=== PATIENT | male | born 1990 | race Caucasian/White ===

== ENCOUNTER → 2022-11-20 16:41 | Outpatient (CLI) | payer BC, SELFPAY ==
[2022-11-20 19:38] LABS: Alanine Aminotransferase 22 U/L (12-78); Albumin Level 4.7 g/dl (3.5-5.0); Albumin/Globulin Ratio 1.7 (1.1-1.8); Alkaline Phosphatase 49 U/L (38-126); Anion Gap 11.6 mEq/L (5-15); Aspartate Amino Transferase 33 U/L (17-59); Bilirubin,Total 0.5 mg/dl (0.2-1.3); Blood Urea Nitrogen 14 mg/dl (9-20); Calcium 9.1 mg/dl (8.4-10.2); Carbon Dioxide 29 mmol/L (22.0-30.0); Chloride 103 mmol/L (98-107); Estimated Glomerular Filt Rate 86 ml/min (>60); GFR (African American) 104 ML/MIN (>60); Globulin 2.7 g/dL (1.3-3.2); Glucose 80 mg/dl (74-100); Potassium 4.6 mmoL/L (3.5-5.1); Sodium 139 mmol/L (136-145); Total Protein,Serum 7.4 g/dl (6.3-8.2)
[2022-11-20 20:21] LABS: Basophils % 0.6 % (0.1-2.0); Eosinophils # 0.5 K/mm3 (0.0-0.4); Eosinophils % 7.4 % (0.1-12.0); Hematocrit 44.4 % (42.0-52.0); Hemoglobin 14.5 g/dL (14.1-18.0); Lymphocytes # 2.6 K/mm3 (0.7-4.5); Lymphocytes % 41.9 % (10-50); Mean Corpuscular HGB Conc 32.6 g/dL (31.8-35.4); Mean Corpuscular Hemoglobin 29.2 pg (27.0-31.2); Mean Corpuscular Volume 89.6 fl (80-94); Mean Platelet Volume 8.9 fl (7.4-10.4); Monocytes # 0.3 K/mm3 (0.1-1.0); Monocytes % 5.4 % (1.7-9.3); Neutrophils # 2.8 K/mm3 (1.8-7.8); Neutrophils % 44.7 % (37.0-80.0); Platelet Count 300 K/mm3 (142-424); Red Blood Count 4.96 M/mm3 (4.60-6.20); White Blood Count 6.3 K/mm3 (4.8-10.8)
[2022-11-20 20:27] LABS: Vitamin B12 769 pg/mL (239-931)
[2022-11-21 10:55] LABS: Thyroid Stimulating Hormone 7.68 uIU/mL (0.465-4.68)
[2022-11-24 11:21] LABS: Free T4 (Free Thyroxine) 1.11 ng/dl (0.78-2.19)
== END ==
LOC: LAB 16:52
PROVIDERS: PCP Nurse Practitioner Family; Visit Provider Nurse Practitioner Family
DX: R56.9 Unspecified convulsions (principal); R55 Syncope and collapse
CPT/HCPCS: 36415; 80053; 82607; 83735; 84439; 84443; 85025

== ENCOUNTER → 2022-11-24 12:25 | Outpatient (CLI) | payer BC, SELFPAY | PROVIDERS: PCP Nurse Practitioner Family; Visit Provider Nurse Practitioner Family | DX: R55 Syncope and collapse (principal); R56.9 Unspecified convulsions; E03.9 Hypothyroidism, unspecified | CPT/HCPCS: 95816 ==

== ENCOUNTER → 2022-12-18 08:24 | Outpatient (CLI) | payer BC, SELFPAY ==
--- NOTE | 2022-12-18 08:35 | MR_ITS ---
FINAL REPORT CLINICAL HISTORY: RECURRENT SYNCOPE. History of seizures. Intensity has increased x1 month. headache FINDINGS: Multiplanar MR imaging of the brain was performed without and with contrast. There is mild age-appropriate atrophy. Scattered foci of increased T2 signal are seen in the cerebral white matter that have a nonspecific appearance but likely represent mild chronic ischemic/gliotic changes. There is no evidence of intracranial hemorrhage or mass. No abnormal ventricular dilatation is identified. There is no evidence of shift of the midline structures. No abnormal extra-axial fluid collection is seen. No area of abnormal restricted diffusion is identified. The posterior fossa and brainstem have an unremarkable appearance. No abnormal contrast enhancement is seen. Normal major vessel vascular flow voids are seen. There is a retention cyst or polyp in the right maxillary sinus. There is mucosal thickening in multiple ethmoid air cells, sphenoid sinus and frontal sinuses. IMPRESSION: Mild atrophy and chronic ischemic/gliotic changes. No acute intracranial abnormality. Reviewed, Interpreted and Dictated by Andrés Anna III, MD Transcribed by Flako Beckford Authenticated and [facility]
--- NOTE | 2022-12-18 08:37 | XR_ITS ---
FINAL REPORT CLINICAL HISTORY: RULE OUT METAL FOREIGN BODY FOR MRI FINDINGS: ORBITS Look up and look down views were obtained. No fracture is identified. The sinuses are clear. No foreign body is identified. IMPRESSION: No acute process. Reviewed, Interpreted and Dictated by Andrés Anna III, MD Transcribed by Flako Beckford Authenticated and . [facility]
== END ==
LOC: RAD 08:25
PROVIDERS: PCP Nurse Practitioner Family; Visit Provider Nurse Practitioner Family
DX: R55 Syncope and collapse (principal); R56.9 Unspecified convulsions; H05.53 Retained (old) foreign body following penetrating wound of bilateral orbits
CPT/HCPCS: 70200; 70553; A9576

== ENCOUNTER → 2023-01-02 11:10 | Outpatient (CLI) | payer BC, SELFPAY ==
--- NOTE | 2023-01-02 11:11 | ECG_ITS ---
APPROVED REPORT Exam: Resting ECG HR:64 bpm ECG Measurements Heart Rate [address] 173 P 68 QRSd 102 QRS 93 QT 397 T 65 QTc 406 Conclusion SINUS RHYTHM WITH SINUS ARRHYTHMIA BORDERLINE RIGHT AXIS DEVIATION [QRS AXIS > 90] BORDERLINE ECG UNCONFIRMED REPORT Electronically signed by : Hardik Rodrigez MD 01/02/2023 19:16:22
== END ==
LOC: RT 11:11
PROVIDERS: PCP Nurse Practitioner Family; Visit Provider Specialist
DX: R55 Syncope and collapse (principal); R56.9 Unspecified convulsions
CPT/HCPCS: 93005; 93270

== ENCOUNTER → 2023-01-09 09:39 | Day surgery (SDC) | payer BC, SELFPAY ==
[2023-01-09 10:20] VITALS: BP 119/74; PULSE 52; RESP 18; TEMP 36.6; O2SAT 100
--- NOTE | 2023-01-09 12:16 | EXP.TILT ---
Findings:: Findings:: PROCEDURE: Upright tilt table test REQUESTING PHYSICIAN: Daysi Abdi MD INDICATION: Sporadic syncopal episodes since age 12 recently accompanied by loss of bladder control and possible seizure activity MEDS: Probiotic PRETEST VITAL SIGNS (SUPINE): Blood pressure 143/94 mmHg, heart rate 57 bpm, oxygen saturation 100% on room air PROCEDURE SUMMARY: Patient was prepared per protocol. He was then tilted into the upright position at 70 degrees for a total of 30 minutes with the test being terminated thereafter. He had no syncope or near syncope. Patient relates some mild discomfort in the legs at the end of the test. His lowest blood pressure was 140/98 mmHg with a heart rate of 65 and oxygen saturation at 92% at 10 minutes into the test. Peak blood pressure was 165/95 mmHg with a heart rate of 60 bpm oxygen saturation 100% on room air at the onset of the test after being tilted to 70 degrees. Maximum heart rate was 68 bpm, minimum heart rate 60 bpm during the test. No symptoms noted. Heart rhythm was sinus throughout. O2 sats remained in the high 90s throughout the test. Ending blood pressure 140/85 mmHg with heart rate 57 bpm and oxygen saturation 100% on room air. COMPLICATION: None CONCLUSION: Unremarkable upright tilt table test.
== END ==
LOC: RT 09:40
PROVIDERS: PCP Nurse Practitioner Family; Visit Provider Specialist
DX: R55 Syncope and collapse (principal)
CPT/HCPCS: 93660

== ENCOUNTER → 2023-01-16 12:43 | Outpatient (CLI) | payer BC, SELFPAY ==
--- NOTE | 2023-01-16 12:44 | CA_ITS ---
APPROVED REPORT EXAM: Comprehensive 2D, Doppler, and color-flow Echocardiogram Social Services Technician: Chandrika Elizabeth CRT Ht: 5 ft 11 in Wt: 176lbs BSA: 2.00 BP: 14/64 mmHg Indications: syncope Echo Enhancing Agent Indication: Rule out Shunt Agent(s) / Amount(s) Used: Agitated Saline 5 cc Comments: B/S appears positive. 2D Dimensions LVOT 2.00 cm (M/F) 1.5-2.5 M-Mode Dimensions RVDd 2.75 cm (0.9-2.6) LA Diam 2.96 cm (1.9-4.0) LVDd 4.69 cm (3.5-5.7) Ao Diam 3.51 cm (2.0-3.7) LVDs 3.29 cm (3.5-5.7) IVSd 0.78 cm (0.6-1.1) PWd 0.78 cm (0.6-1.1) EF (Teich) 57.00% FS 29.90% EDV (Teich) 101.90 mL ESV (Teich) 43.80 mL LV Diastology E Decel Time 173.00 (160-240 msec) E/A Ratio 1.19 MED E' 11.60 (< 7 cm/sec) MED A' 14.00 cm/s E'/MED E' Ratio 7.10 (>14) LAT E' 14.50 (<10 cm/sec) LAT A' 11.80 cm/s E/LAT E' Ratio 5.68 (>14) Aortic Valve AO Peak GR. 4.50 mmHg Mitral Valve MV A Velocity 69.00 (40-130 cm/s) E/A Ratio 1.19 MV Decel. Time 173.00 (160-240 ms) Pulmonary Valve PV Peak Velocity 107.00 (50-150 cm/s) Tricuspid Valve TR P. Velocity 250.00 cm/s RAP Estimate 10.00 mmHg RVSP 35.00 mmHg Left Ventricle Left atrium is normal size, left ventricle is normal size, estimated ejection fraction 55% with no regional wall motion abnormality, diastolic parameters are within normal range. Right Ventricle Right atrium and right ventricle are normal size and contractility. Atria Intra-atrial septum is intact, agitated saline contrast study identifies patent foramen ovale with [id number] shunt. Aortic Valve Aortic valve is grossly normal there is no aortic stenosis aortic insufficiency. Mitral Valve Mitral valve is grossly normal, there is trace mitral regurgitation. Tricuspid Valve Tricuspid grossly normal, there is trace tricuspid regurgitation, tricuspid regurgitation jet velocity is inadequate for calculation of the right ventricular systolic pressure. Pulmonic Valve Pulmonic valve is poorly visualized. Great Vessels Aortic root is normal size. Inferior vena cava is normal size normal inspiratory collapse. Pericardium No significant pericardial effusion noted. Conclusion 1. Normal left ventricular size preserved ventricular systolic function, estimated ejection fraction 55% with no regional wall motion abnormality, diastolic parameters are within normal range. 2. Patent foramen ovale with [id number] shunt. 3. No significant pericardial effusion noted. 4. Inferior vena cava normal size with normal inspiratory collapse. Electronically signed by : Vin Kinsey MD 01/16/2023 19:19:21
== END ==
LOC: RT 12:44
PROVIDERS: PCP Nurse Practitioner Family; Visit Provider Specialist
DX: R55 Syncope and collapse (principal)
CPT/HCPCS: 93306

== ENCOUNTER → 2023-06-13 12:48 | Outpatient (CLI) | payer BC, SELFPAY ==
--- NOTE | 2023-06-13 12:52 | CA_ITS ---
APPROVED REPORT EXAM: Comprehensive 2D, Doppler, and color-flow Echocardiogram Mac Developer: LALA Cook, RVS Ht: 5 ft 11 in Wt: 178lbs BSA: 2.01 BP: 123/80 mmHg Indications: S/P PFO closure, ex-smoker, Hx- sycope, migraines & seizures Echo Enhancing Agent Indication: Rule out Shunt Agent(s) / Amount(s) Used: Agitated Saline 20 cc 2D Dimensions Aortic Root 2.99 cm M: 3.1 - 3.7 LA Volume 53.50 mL Left Atrium 2.91 cm M: 3.0 - 4.0 LA Volume Index 26.62 mL/m2 (M/F) 16-34 LVOT 1.91 cm (M/F) 1.5-2.5 M-Mode Dimensions RVDd 2.83 cm (0.9-2.6) LA Diam 3.30 cm (1.9-4.0) LVDd 4.76 cm (3.5-5.7) Ao Diam 3.01 cm (2.0-3.7) LVDs 3.18 cm (3.5-5.7) IVSd 0.68 cm (0.6-1.1) PWd 0.72 cm (0.6-1.1) EF (Teich) 61.80% EPSs 0.39 cm FS 33.20% EDV (Teich) 105.40 mL TAPSE 2.78 (<1.7) ESV (Teich) 40.30 mL LV Diastology E Decel Time 293.00 (160-240 msec) E/A Ratio 2.02 MED E' 10.40 (< 7 cm/sec) MED A' 11.00 cm/s E'/MED E' Ratio 7.40 (>14) LAT E' 17.50 (<10 cm/sec) LAT A' 8.80 cm/s E/LAT E' Ratio 4.40 (>14) Aortic Valve LVOT Max 117.00 (70-110 cm/s) LVOT VTI 24.77 cm AoV Peak Jeremy. 137.00 (50-130 cm/s) AO Peak GR. 7.50 mmHg AO Mean GR. 3.70 (<5 mmHg) AO VTI 27.40 (18-25 cm) YONI (VTI) 2.59 (2.5-4.5 cm2) Mitral Valve MV A Velocity 38.00 (40-130 cm/s) E/A Ratio 2.02 MV Decel. Time 293.00 (160-240 ms) Pulmonary Valve PV Peak Velocity 89.00 (50-150 cm/s) AK End VMAX 112.00 cm/s Tricuspid Valve TR P. Velocity 195.00 cm/s RAP Estimate 10.00 mmHg RVSP 25.20 mmHg Left Ventricle The left ventricle is normal size. The left ventricular systolic function is normal. The left ventricular ejection fraction is within the normal range. There is normal left ventricular wall thickness. There is normal LV segmental wall motion. The left ventricular diastolic function is normal. The Left Ventricular Ejection Fraction is % + or -5. Right Ventricle The right ventricle is normal size. The right ventricular systolic function is normal. Atria The left atrium size is normal. The right atrium size is normal. s/p PFO closure. There is no Doppler evidence of interatrial shunt. Administration of agitated saline (bubble study) at rest and with Valsalva demonstrates no residual interatrial shunt. Aortic Valve The aortic valve opens well. There is no aortic valvular stenosis. No aortic regurgitation is present. Mitral Valve The mitral valve is normal in structure. No evidence of mitral valve stenosis. Trace mitral regurgitation. Tricuspid Valve The tricuspid valve is thin and pliable. Trace tricuspid regurgitation. RVSP is normal. Pulmonic Valve The pulmonary valve is normal in structure. Trace pulmonic regurgitation. Great Vessels The aortic root is normal in size. The ascending aorta is normal in size. IVC is normal in size and collapses >50% with inspiration. Pericardium There is no pericardial effusion. Other Information Study Quality: Fair Conclusion Normal biventricular systolic function. No significant valvular disease. s/p PFO closure. There is no Doppler evidence of interatrial shunt. Administration of agitated saline (bubble study) at rest and with Valsalva demonstrates no residual interatrial shunt. Electronically signed by : Inna Peacock, 06/13/2023 13:45:45
== END ==
LOC: RT 12:49
PROVIDERS: PCP Nurse Practitioner Family; Visit Provider Internal Medicine
DX: R55 Syncope and collapse (principal); Q21.12 Patent foramen ovale; Z87.74 Personal history of (corrected) congenital malformations of heart and circulatory system
CPT/HCPCS: 93306

== ENCOUNTER 2025-06-28 19:35 | Observation (INO) | payer BC, SELFPAY ==
[2025-06-28 19:46] VITALS: BP 153/107; PULSE 94; RESP 16; TEMP 36.9; O2SAT 98; BMI 27.8
--- NOTE | 2025-06-28 19:50 | ED_ITS ---
<Statement entered by Maya Davis DO - 06/28/25 23:28> I was consulted by the ANA, and we discussed the complexity of problems being addressed. I approve the treatment and management plan for this patient's care in the emergency department, thus performing a substantial portion of the medical decision making. Maya Davis DO Discharge Plan Disposition Patient Disposition: Admitted Clinical Impressions Clinical Impression: Acute appendicitis Qualifiers: Acute appendicitis type: with localized peritonitis Appendicitis gangrene presence: without gangrene Appendicitis perforation presence: without perforation Appendicitis abscess presence: without abscess Qualified Code(s): K 35.30 - Acute appendicitis with localized peritonitis, without perforation or gangrene Discharge ED Provider: Maya Davis General Adult HPI General Chief complaint: Abdominal Pain Stated complaint: Right side pain,nausea Time Seen by Provider: 06/28/25 19:38 Mode of Arrival: Ambulatory Source of Information: Patient and Spouse Limitations: No Limitations History of Present Illness HPI narrative: 34-year-old male presents to the emergency department with right-sided lower quadrant pain, 1 episode of nausea and vomiting today, patient states the pain started this morning, patient's last p.o. intake was around 9 AM this morning, patient has had decreased p.o. intake/reduced appetite, he admits to subjective fever and chills, has any chest pain shortness of breath, denies any constipation diarrhea, no melena no hematochezia no hematemesis, no urinary type symptomatology, patient states he took MiraLAX and ibuprofen with little no relief of his symptomatology today. Patient is a non-smoker occasionally utilizes alcohol, denies any other drug use, other past medical history is consistent with status post PVO closure, and seizure disorders for which he previously was on anticonvulsants for. Initial triage vitals notable for tachycardia otherwise unremarkable. Please note that above description of symptoms, in this electronic medical record under categorization of recalled from ER triage doctor by RN are reflective of an initial nursing assessment, however, is not reflective of my full history and physical exam that was personally taken and clarified. Consequentially, this preceding description of symptoms, which may include the patient's categorized chief complaint in the EMR, do not reflect my personal clinical impression, and the ultimate description of history of present illness and patient stated complaints should be deferred to this section of the note. Unless stated otherwise or congruent with this section of the note, additional signs, symptoms, or incongruence should be interpreted as inaccurate with my clinical impression. Onset (ago): hour(s) Related Data Home Medications ?Medication ?Instructions ?Recorded ?Confirmed B.coagulans 2 billion 1 cap PO DAILY Supplement 12/31/23 cell-digestive enzymes combo no.10 capsule (Digestive Advantage Probiotics Plus Gas) clopidogrel 75 mg tablet 75 mg PO DAILY 05/28/2302/19 loratadine 10 mg tablet (Claritin) 10 mg PO DAILY PRN 12/31/23 12/31/23 Previous Rx's ?Medication ?Instructions ?Recorded levetiracetam 500 mg tablet 500 mg PO BID seizure #60 tabs 12/31/23 (Keppra) Allergies Allergy/AdvReac Type Severity Reaction Status Date / Time No Known Allergies Allergy Verified 12/31/23 16:15 [facility] Disclaimer: The information contained in this section may have been updated after the patient was seen, as this information can be updated by other users. Medical History Hx of syncope Seizure disorder Surgical History S/P patent foramen ovale closure History of eye surgery Family History Other Cancer Coronary artery disease Diabetes Family history of diabetes mellitus type II Heart attack Stroke Social History (Updated 06/28/25 @ 21:44 by Miguel Angel Ramon APRN) Smoking Status: Former smoker alcohol intake: current alcohol intake frequency: holidays/special occasions only substance use type: denies use current occupational status: employed Travel in the last 8 weeks?: None adopted: No caregiver/support person: No foster care: No household members: spouse housing: other marital status: education level: high school caffeine: Yes do you feel safe at home: Yes victim of physical abuse: No victim of emotional abuse: No victim of sexual abuse: No would you like helpful sources: No Have you lived/traveled outside [place] in past 30 days?: No Contact w/someone who lives/traveled outside US past 30 days?: No Exposure to someone with infectious disease in past 14 days?: No Do you have a fever (greater than 100.4 F or 38 C)?: No Have you tested positive for COVID-19?: No Exposed to someone with COVID-19 in past 14 days?: No Do you have a sore throat?: No Do you have a cough?: No Do you have any weakness?: No Do you have any diarrhea?: No Are you experiencing any unusual bleeding?: No Do you have any muscle aches/pain?: No Do you have any abdominal pain?: Yes Are you experiencing loss of taste or smell?: No Other Medical History Have you received the Pneumonia Vaccine: No ROS Obtained: Yes All systems reviewed & no additional complaints except as documented Physical Exam General General appearance: alert and in no apparent distress Head Head exam: atraumatic and normocephalic Eye Eye exam: Present PERRL and EOMI ENT ENT exam: Present mucous membranes moist Neck Neck exam: Present normal inspection Chest Chest inspection: Present normal inspection and symmetric chest wall rise Respiratory Respiratory exam: Present normal lung sounds bilaterally; Absent respiratory distress Cardiovascular Cardiovascular exam: Present normal rhythm and tachycardia Abdominal Exam Abdominal exam: Present soft, tenderness, guarding, psoas sign and tenderness at McBurney's Point; Absent rebound Abdominal tenderness: Present RLQ and moderate Extremities Exam Extremities exam: Present normal inspection Back Exam Back exam: Present CVA tenderness (R); Absent CVA tenderness (L) Neurological Exam Neurological exam: Present alert and oriented X3 Psychiatric Psychiatric exam: Present normal affect Skin Skin exam: Present warm and dry Medical Decision Making Medical Records Medical records reviewed: Yes I reviewed the patient's medical records. Screening: Per USPSTF and CDC recommendations, given the prevalence of disease in our region, it is our hospital?s policy to screen for HIV and viral Hepatitis for all patients aged 18 and over and those with ongoing risk factors. John Inquiry Pt receiving controlled substance: Yes John was queried for this patient: No Reason not queried -: Emergent pt cond-no time Risks and benefits of using a controlled substance: were discussed with pt by me Vital Signs: 06/28/25 19:46 06/28/25 21:22 06/28/25 21:50 Temperature 98.4 F 98.3 F Temperature Source Oral Oral Pulse Rate 89 80 Pulse Rate [Left] 94 H Respiratory Rate 16 16 16 Blood Pressure 165/110 H 146/98 H Blood Pressure [Right Arm] 153/107 H Blood Pressure Mean [Right Arm] 122 Blood Pressure Source [Right Arm] Automatic Cuff Blood Pressure Position [Right Arm] Sitting 02 Sat by Pulse Oximetry 98 97 Oxygen Delivery Method Room Air Room Air Lab Data Lab results reviewed: Yes I reviewed the patient's lab results. Lab Results 06/28/25 19:48: WBC 14.8 H, RBC 5.01, Hgb 15.8, Hct 43.9, MCV 87.6, MCH 31.5 H, MCHC 36.0 H, RDW 13.0, Plt Count 318, MPV 10.4, Neut % (Auto) 77.3, Lymph % (Auto) 12.3, Archer % (Auto) 7.2, Eos % (Auto) 2.4, Baso % (Auto) 0.3, Neut # (Auto) 11.4 H, Lymph # (Auto) 1.8, Archer # (Auto) 1.1 H, Eos # (Auto) 0.4, Baso # (Auto) 0.0, Sodium 136, Potassium 3.8, Chloride 102, Carbon Dioxide 24, Anion Gap 13.8, BUN 12, Creatinine 0.90, Estimated Creat Clear 146, Estimated GFR 95, Est GFR ( Amer) 116, Glucose 105 H, Calcium 9.5, Total Bilirubin 0.8, AST 42, ALT 27, Alkaline Phosphatase 67, Total Protein 8.3 H, Albumin 4.8, Globulin 3.5 H, Albumin/Globulin Ratio 1.4, Lipase 63 06/28/25 19:48 06/28/25 19:48 Orders (Tests/Meds): ED MEDICATIONS Generic Name Dose Route Start Last Admin Trade Name Freq PRN Reason Stop Dose Admin Hydromorphone HCl 1 mg 06/28/25 21:35 Hydromorphone 2mg/Ml Syringe IV 07/28/25 21:34 Q4HP PRN Severe Pain (7-10) Lactated Ringer's 1,000 mls @ 125 mls/hr 06/28/25 21:45 Lactated Ringer's 1000 Ml Bag IV 07/28/25 21:44 .Q8H INDIRA Piperacillin Sod/Tazobactam 50 mls @ 100 mls/hr 06/29/25 05:00 Sod 3.375 gm/ Sodium Chloride IV 07/09/25 04:59 Q8H INDIRA Ketorolac Tromethamine 15 mg 06/28/25 21:35 Ketorolac 30mg/Ml Vial IV 07/03/25 21:34 Q6HP PRN Moderate Pain (4-6) Ondansetron HCl 4 mg 06/28/25 21:35 Ondansetron 4mg/2ml Vial IV 07/28/25 21:34 Q8HP PRN Nausea Sodium Chloride 8 ml 06/28/25 21:35 Sodium Chloride 0.9% 10ml Vial IV 07/28/25 21:34 NEEDED PRN dilute pepcid Discontinued Medications Generic Name Dose Route Start Last Admin Trade Name Freq PRN Reason Stop Dose Admin Famotidine 20 mg 06/28/25 21:35 Famotidine 20mg/2ml Vial IV 06/28/25 21:36 ONCE ONE Piperacillin Sod/Tazobactam 50 mls @ 100 mls/hr 06/28/25 21:11 06/28/25 21:28 Sod 3.375 gm/ Sodium Chloride IV 06/28/25 21:40 100 mls/hr ONCE ONE Administration Iopamidol 75 ml 06/28/25 20:06 06/28/25 20:06 Iopamidol-370 (76%);100ml Bottle IV 06/28/25 20:07 75 ml ONCE ONE Administration Morphine Sulfate 4 mg 06/28/25 19:56 06/28/25 20:14 Morphine 4mg/Ml Syringe IV 06/28/25 19:57 4 mg ONCE ONE Administration Ondansetron HCl 4 mg 06/28/25 19:56 06/28/25 20:13 Ondansetron 4mg/2ml Vial IV 06/28/25 19:57 4 mg ONCE ONE Administration Sodium Chloride 10 ml 06/28/25 20:06 06/28/25 20:06 Sodium Chloride 0.9% 10ml Syr (Rad Only) IV 06/28/25 20:07 10 ml ONCE ONE Administration ORDERS Category Date Time Status CT abdomen pelvis w con Stat Cat Scan 06/28/25 19:55 Completed Consult to General Surgery [CONS] Routine Cons 06/28/25 21:35 Ordered Consult to General Surgery [CONS] Stat Cons 06/28/25 21:12 Ordered Complete Blood Count Auto Diff Stat Lab 06/28/25 19:48 Completed Comprehensive Metabolic Panel Stat Lab 06/28/25 19:48 Completed Lactic Acid Stat Lab 06/28/25 19:56 Ordered Lipase Stat Lab 06/28/25 19:48 Completed Urinalysis and Microscopic Stat Lab 06/28/25 19:56 Ordered Medical Decision Narrative: 34-year-old male presents to the emergency department with lower quadrant abdominal pain, nausea vomiting, poor p.o. intake, differential diagnose include but not limited to appendicitis, diverticulitis, pancreatitis, colitis, ileitis, nephrolithiasis, acute UTI, acute pyelonephritis, ureterolithiasis, bowel obstruction, among others. I discussed patient case with him physician Dr. Davis Will obtain basic laboratory studies, lactic acid level, lipase level, UA, will place the patient n.p.o. in the emerged part, CT and pelvis with contrast to be obtained, will give 4 mg of morphine and 4 mg of Zofran for pain and nausea. Mild leukocytosis at 14.8, as noted on CBC CMP is notable for normal lipase I reviewed the patient's CT ab pelvis with contrast along the corresponding radiologic report, findings compatible with acute early appendicitis. I also was able to speak to the radiologist personally on the phone. See radiology report for full formal details. Discussed this patient's case with the general surgeon Dr. Joseph at approximately 9:04 PM, he is in agreement with the current treatment plan/admission plan patient be NPO after midnight, will give IV antibiotics, will give IV Zosyn, he voiced understanding with this, patient will be most likely operative case in the morning for appendectomy. I discussed need for admission and general surgery consultation/evaluation in the a.m. with patient family the bedside patient and family agree with current treatment plan/admission plan. I discussed this patient's case with the hospitalist Miguel Angel Rossi APRN at approximately 9:10 PM, he is in agreement with cardioversion plan/treatment plan. Of note, patient tells me he has no longer on his anticonvulsant therapy or antiplatelet therapy. Critical Care Critical Care Time Critical Care Time: No
--- NOTE | 2025-06-28 19:55 | CT_ITS ---
PROCEDURE INFORMATION: Exam: CT Abdomen And Pelvis With Contrast Exam date and time: 06/28/2025 8:07 PM Age: 34 years old Clinical indication: Nausea and vomiting; Abdominal pain; Additional info: Rlq pain, nausea and vomiting TECHNIQUE: Imaging protocol: Computed tomography of the abdomen and pelvis with contrast. Radiation optimization: All CT scans at this facility use at least one of these dose optimization techniques: automated exposure control; mA and/or kV adjustment per patient size (includes targeted exams where dose is matched to clinical indication); or iterative reconstruction. Contrast material: ISOVUE; Contrast volume: 75 ml; Contrast route: IV; COMPARISON: No relevant prior studies available. FINDINGS: Liver: Normal. No mass. Gallbladder and biliary ducts: Normal. No calcified stones. No ductal dilation. Pancreas: Normal. No ductal dilation. Spleen: Normal. No splenomegaly. Adrenal glands: Normal-sized adrenal glands. Small calcification left adrenal gland noted. Kidneys and ureters: Normal. No hydronephrosis. Stomach and bowel: Unremarkable. No obstruction. No mucosal thickening. Appendix: No evidence of appendicitis. Intraperitoneal space: See Soft tissues finding. Vasculature: Normal-sized aorta with satisfactory enhancement. Mild atherosclerotic plaquing involving the common iliac arteries. Lymph nodes: Unremarkable. No enlarged lymph nodes. Urinary bladder: Unremarkable as visualized. Reproductive: Unremarkable as visualized. Bones/joints: Unremarkable. No acute fracture. Soft tissues: The appendix in the right lower quadrant is enlarged measuring 9 mm and demonstrates mild wall enhancement with surrounding mesenteric inflammation and fascial thickening most consistent with early uncomplicated appendicitis. There is no free fluid seen within the pelvis. IMPRESSION: 1. Abnormal appendix right lower quadrant as discussed above which has an appearance most consistent with early uncomplicated acute appendicitis. 2. Other findings above. COMMENT: THIS REPORT CONTAINS FINDINGS THAT MAY BE CRITICAL TO PATIENT CARE. The exam findings were verbally communicated by me to Dr. Samir Gomez via telephone conference at 9:00 PM EDT on 06/28/2025. The findings were acknowledged and understood.
--- NOTE | 2025-06-28 20:00 | PC.NURSE ---
Pt notified of UA need. PT unable to urinate at this time.
[2025-06-28] MEDS: SODIUM CHLORIDE 0.9% 10ML SYR (RAD ONLY) 10 ML IV (20:06)
[2025-06-28] MEDS: IOPAMIDOL-370 (76%);100ML BOTTLE 75 ML IV (20:06)
[2025-06-28 20:07] LABS: Alanine Aminotransferase 27 U/L (12-78); Albumin Level 4.8 g/dl (3.5-5.0); Albumin/Globulin Ratio 1.4 (1.1-1.8); Alkaline Phosphatase 67 U/L (38-126); Anion Gap 13.8 mEq/L (5-15); Aspartate Amino Transferase 42 U/L (17-59); Bilirubin,Total 0.8 mg/dl (0.2-1.3); Blood Urea Nitrogen 12 mg/dl (9-20); Calcium 9.5 mg/dl (8.4-10.2); Carbon Dioxide 24 mmol/L (22.0-30.0); Chloride 102 mmol/L (98-107); Creatinine Clearance Estimated 146 mL/min (50-200); Creatinine,Serum 0.90 mg/dl (0.66-1.25); Estimated Glomerular Filt Rate 95 ml/min (>60); GFR (African American) 116 ML/MIN (>60); Globulin 3.5 g/dL (1.3-3.2); Glucose 105 mg/dl (74-100); Lipase 63 U/L (23-300); Potassium 3.8 mmoL/L (3.5-5.1); Sodium 136 mmol/L (136-145); Total Protein,Serum 8.3 g/dl (6.3-8.2)
[2025-06-28 20:11] LABS: Hematocrit 43.9 % (42.0-52.0); Hemoglobin 15.8 g/dL (14.1-18.0); Immature Granulocytes % 0.5 %; Mean Corpuscular HGB Conc 36.0 g/dL (31.8-35.4); Mean Corpuscular Hemoglobin 31.5 pg (27.0-31.2); Mean Corpuscular Volume 87.6 fl (80-94); Nucleated Red Blood Cells % 0 %; Platelet Count 318 K/mm3 (142-424); Red Blood Count 5.01 M/mm3 (4.60-6.20); Red Cell Distribution Width-SD 41.2 fL; White Blood Count 14.8 K/mm3 (4.8-10.8)
[2025-06-28] MEDS: ONDANSETRON 4MG/2ML VIAL 4 MG IV (20:13)
[2025-06-28] MEDS: MORPHINE 4MG/ML SYRINGE 4 MG IV (20:14)
[2025-06-28 21:22] VITALS: BP 165/110; PULSE 89; RESP 16; O2SAT 97
[2025-06-28] MEDS: PIPERCILLIN/TAZO 3.375 GM in 0.9 % SODIUM CHLORIDE 50 ML IV (21:28)
--- NOTE | 2025-06-28 21:41 | P.HP_ITS ---
<Statement entered by Anjum Silverman MD - 06/29/25 15:34> Rounded on patient after nurse practitioner. Personally examined and interviewed patient. Agree with exam findings and care plan as documented. History of Present Illness *Admission Date: 06/28/25 *Reason for visit:: Appendicitis *History of present illness: This healthy 33-year-old male began to have lower quadrant pain earlier today., As coming to the ER CT scan was done and found to have an inflamed appendix., ER provider has contacted Dr. Cochran who would like the patient admitted and he will take him to surgery in the morning.. Patient be placed on the floor with pain medication as needed. Also continuing the Zosyn. N.p.o. after midnight. Patient does not have any other significant history and his past medical very seldom goes to the doctor. Noting though that his blood pressure has remained elevated in the emergency room. He has no history of hypertension but his mother has hypertension.. I brought this to the patient's attention and his 's attention that after he heals from this to have his blood pressure check several times and gave them the parameter that they would need to talk to a primary care provider if it remained elevated. Patient is no longer on Keppra for seizures but had a history of seizures while sleeping in the past. [facility] Disclaimer: The information contained in this section may have been updated after the patient was seen, as this information can be updated by other users. Medical History Hx of syncope Seizure disorder Surgical History S/P patent foramen ovale closure History of eye surgery Family History Other Cancer Coronary artery disease Diabetes Family history of diabetes mellitus type II Heart attack Stroke Social History Smoking Status: Former smoker alcohol intake: current alcohol intake frequency: holidays/special occasions only substance use type: denies use current occupational status: employed Travel in the last 8 weeks?: None adopted: No caregiver/support person: No foster care: No household members: spouse housing: other marital status: education level: high school caffeine: Yes do you feel safe at home: Yes victim of physical abuse: No victim of emotional abuse: No victim of sexual abuse: No would you like helpful sources: No Have you lived/traveled outside US in past 30 days?: No Contact w/someone who lives/traveled outside US past 30 days?: No Exposure to someone with infectious disease in past 14 days?: No Do you have a fever (greater than 100.4 F or 38 C)?: No Have you tested positive for COVID-19?: No Exposed to someone with COVID-19 in past 14 days?: No Do you have a sore throat?: No Do you have a cough?: No Do you have any weakness?: No Do you have any diarrhea?: No Are you experiencing any unusual bleeding?: No Do you have any muscle aches/pain?: No Do you have any abdominal pain?: Yes Are you experiencing loss of taste or smell?: No Other Medical History Have you received the Pneumonia Vaccine: No Review of Systems Review of Systems Review of systems:: pertinent systems reviewed and negative unless documented below Review of systems (narrative): Noted in history that the patient has seizures when he sleeping, on Keppra. When talking to him in the ER he did not bring this up. Double checked with the patient he does not take medication anymore for seizure Eyes Eyes: Reports as per HPI ENT Ears, Nose, Mouth, and Throat: Reports as per HPI *Cardiovascular Cardiovascular: Reports as per HPI *Respiratory Respiratory: Reports as per HPI *Gastrointestinal Gastrointestinal: Reports as per HPI and Reports abdominal pain *Genitourinary Genitourinary: Reports as per HPI *Musculoskeletal Musculoskeletal: Reports as per HPI Integumentary/Breasts Skin/Breast: Reports as per HPI *Neurologic Neurologic: Reports as per HPI Psychiatric Psychiatric: Reports as per HPI Endocrine Endocrine: Reports as per HPI Hematologic/Lymphatic Hematologic/Lymphatic: Reports as per HPI Allergic/Immunologic Allergic/Immunologic: Reports as per HPI Meds Home Medications and Allergies Home Medications ?Medication ?Instructions ?Recorded ?Confirmed ?Type amoxicillin 500 mg-potassium 1 tab PO TID #15 tabs 11/22 Rx clavulanate 125 mg tablet (Augmentin) hydrocodone 5 mg-acetaminophen 325 1 tab PO Q6H PRN po st-op pain #17 06/29/25 Rx mg tablet tabs New Prescriptions to Start Prescriptions: amoxicillin-pot clavulanate [Augmentin] Tristin Joseph hydrocodone-acetaminophen Tristin Joseph Allergies Allergy/AdvReac Type Severity Reaction Status Date / Time No Known Allergies Allergy Verified 12/31/23 16:15 Exam Data for Last 24 hours Vital signs and Labs for Last 24 Hours: Temp Pulse Resp BP Pulse Ox O2 Del Method 98.4 F 89 16 165/110 H 97 Room Air 06/28/25 19:46 06/28/25 21:22 06/28/25 21:22 06/28/25 21:22 06/28/25 21:22 06/28/25 19:46 Laboratory Results - last 24 hr 06/28/25 19:48: WBC 14.8 H, RBC 5.01, Hgb 15.8, Hct 43.9, MCV 87.6, MCH 31.5 H, MCHC 36.0 H, RDW 13.0, Plt Count 318, MPV 10.4, Neut % (Auto) 77.3, Lymph % (Auto) 12.3, [place] % (Auto) 7.2, Eos % (Auto) 2.4, Baso % (Auto) 0.3, Neut # (Auto) 11.4 H, Lymph # (Auto) 1.8, [place] # (Auto) 1.1 H, Eos # (Auto) 0.4, Baso # (Auto) 0.0, Sodium 136, Potassium 3.8, Chloride 102, Carbon Dioxide 24, Anion Gap 13.8, BUN 12, Creatinine 0.90, Estimated Creat Clear 146, Estimated GFR 95, Est GFR ( Amer) 116, Glucose 105 H, Calcium 9.5, Total Bilirubin 0.8, AST 42, ALT 27, Alkaline Phosphatase 67, Total Protein 8.3 H, Albumin 4.8, Globulin 3.5 H, Albumin/Globulin Ratio 1.4, Lipase 63 I & O for Last 24 hours: Intake & Output 06/26/25 06/27/25 06/28/25 06/29/25 05:59 05:59 05:59 05:59 Weight 200 lb Radiology Reports for the Last 24 Hours: . Abnormal appendix right lower quadrant as discussed above which has an appearance most consistent with early uncomplicated acute appendicitis. 2. Other findings above. Constitutional Constitutional: mild distress and cooperative Comments: Blood pressure elevated patient's pain in good control as long as not being pressed on *Routine HEENT Exam Head: Present normocephalic and atraumatic Eye: Present EOMI and PERRL ENT: Present mucous membranes moist *Routine Neck Exam Neck: Present supple and full ROM *Routine Respiratory Exam Respiratory: Present CTA bilaterally, normal respiratory effort, able to speak in complete sentences and symmetric chest movement Comments: Clear lung bates *Routine Cardiovascular Exam Cardiovascular: Present RRR, Normal S1 and Normal S2 *Routine Abdominal Exam Abdominal: Present soft and tenderness Comments: With the positive CT scan I just had the patient show me where the pain was I did not palpate the abdomen as we are going to take the CT scan that there is an appendicitis no other GI issues reported bowels are normal *Routine Rectal Exam Rectal:: deferred *Routine Genitalia Exam Genitalia:: deferred *Routine Extremities Exam Extremities: Present full ROM, pulses intact and normal capillary refill *Routine Skin Exam Skin: Present intact, dry and warm *Routine Neurological Exam Neurological: Present alert, oriented X3, CN II-XII intact, normal reflexes, moving all extremities, vision grossly intact, hearing grossly intact and normal speech H&P: Result Impressions 1. Appendicitis 2. Hypertension while in the emergency room Imaging and Cardiology CT scan - abdomen: Additional comments: . Abnormal appendix right lower quadrant as discussed above which has an appearance most consistent with early uncomplicated acute appendicitis. 2. Other findings above. Assessment and Plan *Assessment and plan (1) Acute appendicitis: Status: Acute Qualifiers: Acute appendicitis type: with localized peritonitis Appendicitis abscess presence: without abscess Appendicitis gangrene presence: without gangrene Appendicitis perforation presence: without perforation Qualified Code(s): K35.30 - Acute appendicitis with localized peritonitis, without perforation or gangrene Category: Medical Code(s): K35.80 - Unspecified acute appendicitis (2) Elevated blood pressure reading: Status: Acute Category: Medical Code(s): R03.0 - Elevated blood-pressure reading, without diagnosis of hypertension Plan Present with abdominal pain. Case discussed with ER physician, concern for appendicitis. Medicine agreed to admit for monitoring overnight and surgical eval in the morning. Problems addressed as follows: Appendicitis - Patient will be admitted to the floor. N.p.o. after midnight. Dr. Joseph has been consulted with the intended plan of appendectomy in the a.m. - Patient started on Zosyn 3.375 g and Flagyl. Continue hydrocodone for pain. - CT abdomen per my review showing abnormal appendix, appears enlarged with enhancement of the wall and inflammation - White count elevated 14.8, kidney function normal with BUN 12, creatinine 0.9 - Repeat CBC, CMP, magnesium ordered for the morning 2. Hypertension at this time elevated blood pressure. Will continue to monitor that as it runs in the family. And teaching done with the patient to have it checked after he gets home. To evaluate if it is just because of the situation now are that he has developed hypertension
[2025-06-28 21:50] VITALS: BP 146/98; PULSE 80; RESP 16; TEMP 36.8; O2SAT 97
--- NOTE | 2025-06-28 21:52 | PC.NURSE ---
report called to PAMELA Blake
--- NOTE | 2025-06-28 22:02 | PC.NURSE ---
Patient arrived to floor via wheelchair from ED at 22:00.
[2025-06-28 22:07] VITALS: BP 167/97; PULSE 89; RESP 16; TEMP 36.8; O2SAT 98; BMI 29.2
[2025-06-28] MEDS: LACTATED RINGERS 1000ML 1,000 ML 125 ML IV (22:13)
[2025-06-28] MEDS: FAMOTIDINE 20MG/2ML VIAL 20 MG IV (22:13)
[2025-06-29] VITALS (17 sets, daily range): BP systolic 128–149; BP diastolic 65–96; PULSE 66–98; RESP 16–17; TEMP 36.6–37.2; O2SAT 93–99; BMI 29.2
[2025-06-29 00:14] LABS: Microscopic, Urine URINE MICROSCOPIC (MICROSCOPIC)
[2025-06-29 00:17] LABS: Bilirubin,Urine Negative (Negative); Color,Urine YELLOW (Yellow); Glucose,Urine (UA) Negative (Negative); Ketones,Urine Negative (Negative); Leukocyte Esterase,Urine Negative (Negative); PH,Urine 6.0 (5.0-8.5); Protein,Urine Negative (Negative); Specific Gravity, Urine 1.015 (1.005-1.030); Urobilinogen,Urine 0.2 EU/dl (0.2)
[2025-06-29 00:38] LABS: WBC,Urine Occasional #/hpf (0-3)
[2025-06-29 03:22] LABS: Reflex Lactic Add Lactic Reflex
[2025-06-29] MEDS: LACTATED RINGERS 1000ML 1,000 ML 125 ML IV (05:30)
[2025-06-29] MEDS: PIPERACILLIN/TAZO 3.375 GM in 0.9 % SODIUM CHLORIDE 50 ML IV ×2 (05:30→12:36)
[2025-06-29 06:12] LABS: Lactic Acid Follow Up (RFLX 1) 1.0 mmol/L (0.7-2.1)
--- NOTE | 2025-06-29 07:25 | P.CONS_ITS ---
History of Present Illness *Admission Date: 06/28/25 *Reason for visit:: Appendicitis *History of present illness: This is a 34-year-old gentleman who presents to the emergency department with increasing abdominal pain. Evaluation included a CT scan that revealed changes consistent with appendicitis. Please see HPI forwarded from admission H&P below. Forwarded from admission H&P: This healthy 33-year-old male began to have lower quadrant pain earlier today., As coming to the ER CT scan was done and found to have an inflamed appendix., ER provider has contacted Dr. Cochran who would like the patient admitted and he will take him to surgery in the morning.. Patient be placed on the floor with pain medication as needed. Also continuing the Zosyn. N.p.o. after midnight. Patient does not have any other significant history and his past medical very seldom goes to the doctor. Noting though that his blood pressure has remained elevated in the emergency room. He has no history of hypertension but his mother has hypertension.. I brought this to the patient's attention and his 's attention that after he heals from this to have his blood pressure check several times and gave them the parameter that they would need to talk to a primary care provider if it remained elevated. Patient is no longer on Keppra for seizures but had a history of seizures while sleeping in the past. [facility] Disclaimer: The information contained in this section may have been updated after the patient was seen, as this information can be updated by other users. Medical History Hx of syncope Seizure disorder Surgical History S/P patent foramen ovale closure History of eye surgery Family History Other Cancer Coronary artery disease Diabetes Family history of diabetes mellitus type II Heart attack Stroke Social History Smoking Status: Former smoker alcohol intake: current alcohol intake frequency: holidays/special occasions only substance use type: denies use current occupational status: employed Travel in the last 8 weeks?: None adopted: No caregiver/support person: No foster care: No household members: spouse housing: other marital status: education level: high school caffeine: Yes do you feel safe at home: Yes victim of physical abuse: No victim of emotional abuse: No victim of sexual abuse: No would you like helpful sources: No Have you lived/traveled outside US in past 30 days?: No Contact w/someone who lives/traveled outside US past 30 days?: No Exposure to someone with infectious disease in past 14 days?: No Do you have a fever (greater than 100.4 F or 38 C)?: No Have you tested positive for COVID-19?: No Exposed to someone with COVID-19 in past 14 days?: No Do you have a sore throat?: No Do you have a cough?: No Do you have any weakness?: No Do you have any diarrhea?: No Are you experiencing any unusual bleeding?: No Do you have any muscle aches/pain?: No Do you have any abdominal pain?: Yes Are you experiencing loss of taste or smell?: No Review of Systems Review of Systems Review of systems:: pertinent systems reviewed and negative unless documented below *Gastrointestinal Gastrointestinal: Reports as per HPI *Neurologic Neurologic: Reports as per HPI Meds Home Medications and Allergies New Prescriptions to Start Prescriptions: Allergies Allergy/AdvReac Type Severity Reaction Status Date / Time No Known Allergies Allergy Verified 12/31/23 16:15 Exam (Inpt) Vital signs and Labs for Last 24 Hours: Temp Pulse Resp BP Pulse Ox O2 Del Method 99.0 F 98 H 16 135/83 97 Room Air 06/29/25 04:00 06/29/25 04:00 06/29/25 04:00 06/29/25 04:00 06/29/25 04:00 06/29/25 06:43 Laboratory Results - last 24 hr 06/28/25 19:48: WBC 14.8 H, RBC 5.01, Hgb 15.8, Hct 43.9, MCV 87.6, MCH 31.5 H, MCHC 36.0 H, RDW 13.0, Plt Count 318, MPV 10.4, Neut % (Auto) 77.3, Lymph % (Auto) 12.3, [place] % (Auto) 7.2, Eos % (Auto) 2.4, Baso % (Auto) 0.3, Neut # (Auto) 11.4 H, Lymph # (Auto) 1.8, [place] # (Auto) 1.1 H, Eos # (Auto) 0.4, Baso # (Auto) 0.0, Sodium 136, Potassium 3.8, Chloride 102, Carbon Dioxide 24, Anion Gap 13.8, BUN 12, Creatinine 0.90, Estimated Creat Clear 146, Estimated GFR 95, Est GFR ( Amer) 116, Glucose 105 H, Calcium 9.5, Total Bilirubin 0.8, AST 42, ALT 27, Alkaline Phosphatase 67, Total Protein 8.3 H, Albumin 4.8, Globulin 3.5 H, Albumin/Globulin Ratio 1.4, Lipase 63 06/28/25 23:16: Lactate 3.4 H 06/28/25 23:35: Urine Color Yellow, Urine Appearance Clear, Urine pH 6.0, Ur Specific [place] 1.015, Urine Protein Negative, Urine Glucose (UA) Negative, Urine Ketones Negative, Urine Blood Negative, Urine Nitrate Negative, Urine Bilirubin Negative, Urine Urobilinogen 0.2, Ur Leukocyte Esterase Negative, Urine RBC None, Urine WBC Occasional, Ur Squamous Epith Cells None, Urine Bacteria None 06/29/25 05:35: Lactate 1.0 I & O for Labs for Last 24 Hours: Intake & Output 06/26/25 06/27/25 06/28/25 06/29/25 11:59 11:59 11:59 11:59 Intake Total 1010.417 / 1010.417 Output Total 0 / 0 Balance 1010.417 / 1010.417 Weight 208 lb 11.2 oz Constitutional: no acute distress Respiratory: Absent respiratory distress Cardiac: Absent Tachycardia GI: Present soft and tenderness Results Labs 06/28/25 19:48 06/28/25 19:48 Labs: Laboratory Results - last 24 hr 06/28/25 19:48: WBC 14.8 H, RBC 5.01, Hgb 15.8, Hct 43.9, MCV 87.6, MCH 31.5 H, MCHC 36.0 H, RDW 13.0, Plt Count 318, MPV 10.4, Neut % (Auto) 77.3, Lymph % (Auto) 12.3, [place] % (Auto) 7.2, Eos % (Auto) 2.4, Baso % (Auto) 0.3, Neut # (Auto) 11.4 H, Lymph # (Auto) 1.8, [place] # (Auto) 1.1 H, Eos # (Auto) 0.4, Baso # (Auto) 0.0, Sodium 136, Potassium 3.8, Chloride 102, Carbon Dioxide 24, Anion Gap 13.8, BUN 12, Creatinine 0.90, Estimated Creat Clear 146, Estimated GFR 95, Est GFR ( Amer) 116, Glucose 105 H, Calcium 9.5, Total Bilirubin 0.8, AST 42, ALT 27, Alkaline Phosphatase 67, Total Protein 8.3 H, Albumin 4.8, Globulin 3.5 H, Albumin/Globulin Ratio 1.4, Lipase 63 06/28/25 23:16: Lactate 3.4 H 06/28/25 23:35: Urine Color Yellow, Urine Appearance Clear, Urine pH 6.0, Ur Specific [place] 1.015, Urine Protein Negative, Urine Glucose (UA) Negative, Urine Ketones Negative, Urine Blood Negative, Urine Nitrate Negative, Urine Bilirubin Negative, Urine Urobilinogen 0.2, Ur Leukocyte Esterase Negative, Urine RBC None, Urine WBC Occasional, Ur Squamous Epith Cells None, Urine Bacteria None 06/29/25 05:35: Lactate 1.[address] scan - abdomen: report reviewed and image reviewed CT scan - pelvis: report reviewed and image reviewed Assessment and Plan *Assessment and plan (1) Acute appendicitis: Status: Acute Qualifiers: Acute appendicitis type: with localized peritonitis Appendicitis abscess presence: without abscess Appendicitis gangrene presence: without gangrene Appendicitis perforation presence: without perforation Qualified Code(s): K35.30 - Acute appendicitis with localized peritonitis, without perforation or gangrene Category: Medical Code(s): K35.80 - Unspecified acute appendicitis Plan: Continue overall management as per primary service Laparoscopic appendectomy this morning I have discussed the risks and benefits including, but not limited to: Bleeding Infection Damage to surrounding tissue Inherent risks of sedation The patient agrees to proceed.
[2025-06-29] MEDS: METRONIDAZ/SOD CHL 500 MG/100 ML PIGGYBACK 100 MG IV (07:34)
--- NOTE | 2025-06-29 07:35 | EXP.OP.NOTE ---
Date of procedure: 06/29/25 Pre-op Diagnosis:: Acute appendicitis Post-op Diagnosis:: Same Procedure performed:: Laparoscopic appendectomy Surgeon:: Tristin Joseph MD [employer] INTERN:: Benjamin Estrada Anesthesia: ANI Estimated blood loss (mL): 15 Operative findings:: Inflamed/enlarged appendix Periappendiceal fat stranding Operative note:: After informed consent was obtained the patient was taken to the operating room and placed in the supine position. General anesthesia was induced and his abdomen was prepped and draped in a sterile fashion. After infiltration with local anesthetic a supraumbilical incision was made. A Veress needle was placed in position. The abdomen was insufflated. Under direct visualization a 5 mm trocar was placed in the suprapubic position and an additional 5 mm trocar was placed in the left lower quadrant. Evaluation of the right lower quadrant revealed profound inflammatory changes. The appendix was carefully elevated. An enlarged/inflamed appendix with mild central suppurative changes was noted. Periappendiceal fat stranding also noted. No definitive evidence of perforation or abscess collection noted. The mesoappendix was taken with harmonic ludmila. The base of the appendix was stapled with the Endopath 45 device. The appendix was placed in a retrieval bag and removed through the supraumbilical trocar site. The right lower quadrant was thoroughly irrigated. No active bleeding or sign of injury was noted. Fascia at the supraumbilical trocar site was reapproximated utilizing the Neoclose device. Pneumoperitoneum was released as the trocars were removed. All wounds were irrigated and skin was closed with 4-0 Monocryl in a subcuticular fashion. Steri-Strips were applied and the patient was transferred to recovery in stable condition after extubation. Condition: stable Disposition: PACU Specimens:: Appendix Complications:: No immediate
[2025-06-29] MEDS: LIDOCAINE 1% 20ML MDV 20 ML (08:00)
--- NOTE | 2025-06-29 08:47 | P.PNANES_ITS ---
[facility] Disclaimer: The information contained in this section may have been updated after the patient was seen, as this information can be updated by other users. Medical History Hx of syncope Seizure disorder Surgical History S/P patent foramen ovale closure History of eye surgery Family History Other Cancer Coronary artery disease Diabetes Family history of diabetes mellitus type II Heart attack Stroke Social History Smoking Status: Former smoker alcohol intake: current alcohol intake frequency: holidays/special occasions only substance use type: denies use current occupational status: employed Travel in the last 8 weeks?: None adopted: No caregiver/support person: No foster care: No household members: spouse housing: other marital status: education level: high school caffeine: Yes do you feel safe at home: Yes victim of physical abuse: No victim of emotional abuse: No victim of sexual abuse: No would you like helpful sources: No Have you lived/traveled outside US in past 30 days?: No Contact w/someone who lives/traveled outside US past 30 days?: No Exposure to someone with infectious disease in past 14 days?: No Do you have a fever (greater than 100.4 F or 38 C)?: No Have you tested positive for COVID-19?: No Exposed to someone with COVID-19 in past 14 days?: No Do you have a sore throat?: No Do you have a cough?: No Do you have any weakness?: No Do you have any diarrhea?: No Are you experiencing any unusual bleeding?: No Do you have any muscle aches/pain?: No Do you have any abdominal pain?: Yes Are you experiencing loss of taste or smell?: No [facility] Anesthesia Checklist Patient Identification Patient Identification: Arm Band Structural Data Admitted From: Inpatient Planned Operative Procedure/s: Laparoscopic Appendectomy Consent for Planned Operative Procedure(s) Verified: Yes Verified Documents: Surgical Consent and History and Physical NPO Status Verified Time NPO: 00:00 Additional verifications Anesthesia Reactions: No Hx Blood Transfusions: No Blood Transfusion Reaction: No Airway Assessment Mallampati Score:: Class II C-Spine Mobility Assessed: Yes TMJ Mobility Assessed: Yes Dentition: Good Dentition Neurological Assessment Level of Consciousness: Awake, Alert and Appropriate Anesthesia Plan Anesthesia Risk discussed: Yes Anesthesia Plan: Verified ASA Class: II Anesthesia Type: General
--- NOTE | 2025-06-29 08:47 | EXP.ANES.I ---
[facility] Anesthesia Record Part I Anesthesia Record I Intake, IV Amount: 900 Hydration: Adequate Estimated blood loss (mL): 10 Urine output (mL): 400 Blood Products used (#): none Blood Pressure: 149/96 SaO2: 93 Pulse Rate: 94 Airway Patency: Patent Respiratory Rate: 16 Temperature: 98.9 F Patient is:: Drowsy and Stable Stable to PACU at:: 08:45
--- NOTE | 2025-06-29 09:05 | P.DS_ITS ---
<Statement entered by Anjum Silverman MD - 06/29/25 15:01> Rounded on patient after nurse practitioner. Personally examined and interviewed patient. Agree with exam findings and care plan as documented. General Admission date:: 06/28/25 Discharge date: 06/29/25 HPI HPI HPI: This is a 34-year-old gentleman who presents to the emergency department with increasing abdominal pain. Evaluation included a CT scan that revealed changes consistent with appendicitis. Please see HPI forwarded from admission H&P below. Forwarded from admission H&P: This healthy 33-year-old male began to have lower quadrant pain earlier today., As coming to the ER CT scan was done and found to have an inflamed appendix., ER provider has contacted Dr. Cochran who would like the patient admitted and he will take him to surgery in the morning.. Patient be placed on the floor with pain medication as needed. Also continuing the Zosyn. N.p.o. after midnight. Patient does not have any other significant history and his past medical very seldom goes to the doctor. Noting though that his blood pressure has remained elevated in the emergency room. He has no history of hypertension but his mother has hypertension.. I brought this to the patient's attention and his 's attention that after he heals from this to have his blood pressure check several times and gave them the parameter that they would need to talk to a primary care provider if it remained elevated. Patient is no longer on Keppra for seizures but had a history of seizures while sleeping in the past. Hospital Course Hospital Course Hospital Course: Mr. Carter is a 34-year-old male who presented to the emergency department with lower quadrant abdominal pain, nausea, vomiting, poor p.o. intake. Workup was done in the emergency department that revealed findings of acute early appendicitis, leukocytosis of 14.8. Given these findings and patient's symptoms, general surgery was consulted. Dr. Cochran recommended patient be admitted overnight and given IV antibiotics for appendectomy in the morning. Patient had laparoscopic appendectomy this morning, no complications during the procedure. Postoperatively patient vital signs stable, mild to moderate pain noted (pain medication ordered as needed). Patient able to tolerate p.o. diet without issues, denies nausea, vomiting, diarrhea. Patient will be discharged home with empiric antibiotics, Augmentin 500 mg 3 times daily x 5 days and [place] 5/325 every 6 hours as needed for postoperative pain. Patient will follow-up with general surgery in 2 weeks for follow-up appointment. Abdominal dressings clean dry and intact, abdomen soft. Exam Data for Last 24 hours Vital signs and Labs for Last 24 Hours: Temp Pulse Resp BP Pulse Ox O2 Del Method 98.9 F 87 16 140/83 94 L Room Air 06/29/25 09:03 06/29/25 09:03 06/29/25 09:03 06/29/25 09:03 06/29/25 09:03 06/29/25 09:03 Laboratory Results - last 24 hr 06/28/25 19:48: WBC 14.8 H, RBC 5.01, Hgb 15.8, Hct 43.9, MCV 87.6, MCH 31.5 H, MCHC 36.0 H, RDW 13.0, Plt Count 318, MPV 10.4, Neut % (Auto) 77.3, Lymph % (Auto) 12.3, [place] % (Auto) 7.2, Eos % (Auto) 2.4, Baso % (Auto) 0.3, Neut # (Auto) 11.4 H, Lymph # (Auto) 1.8, [place] # (Auto) 1.1 H, Eos # (Auto) 0.4, Baso # (Auto) 0.0, Sodium 136, Potassium 3.8, Chloride 102, Carbon Dioxide 24, Anion Gap 13.8, BUN 12, Creatinine 0.90, Estimated Creat Clear 146, Estimated GFR 95, Est GFR ( Amer) 116, Glucose 105 H, Calcium 9.5, Total Bilirubin 0.8, AST 42, ALT 27, Alkaline Phosphatase 67, Total Protein 8.3 H, Albumin 4.8, Globulin 3.5 H, Albumin/Globulin Ratio 1.4, Lipase 63 06/28/25 23:16: Lactate 3.4 H 06/28/25 23:35: Urine Color Yellow, Urine Appearance Clear, Urine pH 6.0, Ur Specific [place] 1.015, Urine Protein Negative, Urine Glucose (UA) Negative, Urine Ketones Negative, Urine Blood Negative, Urine Nitrate Negative, Urine Bilirubin Negative, Urine Urobilinogen 0.2, Ur Leukocyte Esterase Negative, Urine RBC None, Urine WBC Occasional, Ur Squamous Epith Cells None, Urine Bacteria None 06/29/25 05:35: Lactate 1.0 I & O for Last 24 hours: Intake & Output 06/26/25 06/27/25 06/28/25 06/29/25 23:59 23:59 23:59 23:59 Intake Total 50 1860.417 / 1860.417 Output Total 0 / 0 Balance 50 1860.417 / 1860.417 Weight 94.665 kg 94.665 kg Constitutional Constitutional: no acute distress and cooperative *Routine HEENT Exam Head: Present normocephalic Eye: Present EOMI ENT: Present mucous membranes moist *Routine Neck Exam Neck: Present supple and full ROM; Absent JVD *Routine Respiratory Exam Respiratory: Present CTA bilaterally, normal respiratory effort, able to speak in complete sentences and symmetric chest movement; Absent wheezes or crackles *Routine Cardiovascular Exam Cardiovascular: Present RRR, Normal S1 and Normal S2; Absent murmur *Routine Abdominal Exam Abdominal: Present soft, normoactive bowel sounds and tenderness; Absent distended Comments: Surgical dressings clean dry and intact *Routine Extremities Exam Extremities: Present full ROM, pulses intact and normal capillary refill; Absent edema or calf tenderness *Routine Skin Exam Skin: Present intact and dry; Absent erythema or rash *Routine Neurological Exam Neurological: Present alert, oriented X3, vision grossly intact, hearing grossly intact and normal speech; Absent tremors Routine Psychiatric Exam Psychiatric: Present normal affect Results Data Completed and Pending Labs on day of discharge: Labs from last 24 hours 06/29/25 06/28/25 06/28/25 05:35 23:35 23:16 WBC RBC Hgb Hct MCV MCH MCHC RDW Plt Count MPV Neut % (Auto) Lymph % (Auto) [place] % (Auto) Eos % (Auto) Baso % (Auto) Neut # (Auto) Lymph # (Auto) [place] # (Auto) Eos # (Auto) Baso # (Auto) Sodium Potassium Chloride Carbon Dioxide Anion Gap BUN Creatinine Estimated Creat Clear Estimated GFR Est GFR ( Amer) Glucose Lactate 1.0 3.4 H Calcium Total Bilirubin AST ALT Alkaline Phosphatase Total Protein Albumin Globulin Albumin/Globulin Ratio Lipase Urine Color Yellow Urine Appearance Clear Urine pH 6.0 Ur Specific [place] 1.015 Urine Protein Negative Urine Glucose (UA) Negative Urine Ketones Negative Urine Blood Negative Urine Nitrate Negative Urine Bilirubin Negative Urine Urobilinogen 0.2 Ur Leukocyte Esterase Negative Urine RBC None Urine WBC Occasional Ur Squamous Epith Cells None Urine Bacteria None 06/28/25 19:48 WBC 14.8 H RBC 5.01 Hgb 15.8 Hct 43.9 MCV 87.6 MCH 31.5 H MCHC 36.0 H RDW 13.0 Plt Count 318 MPV 10.4 Neut % (Auto) 77.3 Lymph % (Auto) 12.3 [place] % (Auto) 7.2 Eos % (Auto) 2.4 Baso % (Auto) 0.3 Neut # (Auto) 11.4 H Lymph # (Auto) 1.8 [place] # (Auto) 1.1 H Eos # (Auto) 0.4 Baso # (Auto) 0.0 Sodium 136 Potassium 3.8 Chloride 102 Carbon Dioxide 24 Anion Gap 13.8 BUN 12 Creatinine 0.90 Estimated Creat Clear 146 Estimated GFR 95 Est GFR ( Amer) 116 Glucose 105 H Lactate Calcium 9.5 Total Bilirubin 0.8 AST 42 ALT 27 Alkaline Phosphatase 67 Total Protein 8.3 H Albumin 4.8 Globulin 3.5 H Albumin/Globulin Ratio 1.4 Lipase 63 Urine Color Urine Appearance Urine pH Ur Specific [place] Urine Protein Urine Glucose (UA) Urine Ketones Urine Blood Urine Nitrate Urine Bilirubin Urine Urobilinogen Ur Leukocyte Esterase Urine RBC Urine WBC Ur Squamous Epith Cells Urine Bacteria DS: Diagnosis Discharge Diagnosis (1) Acute appendicitis: Status: Acute Code(s): K35.80 - Unspecified acute appendicitis Qualifiers: Acute appendicitis type: with localized peritonitis Appendicitis abscess presence: without abscess Appendicitis gangrene presence: without gangrene Appendicitis perforation presence: without perforation Qualified Code(s): K35.30 - Acute appendicitis with localized peritonitis, without perforation or gangrene (2) S/P appendectomy: Status: Acute Code(s): Z90.49 - Acquired absence of other specified parts of digestive tract Meds Home Medications and Allergies Home Medications ?Medication ?Instructions ?Recorded ?Confirmed ?Type amoxicillin 500 mg-potassium 1 tab PO TID #15 tabs 11/22 Rx clavulanate 125 mg tablet (Augmentin) hydrocodone 5 mg-acetaminophen 325 1 tab PO Q6H PRN po st-op pain #17 06/29/25 Rx mg tablet tabs New Prescriptions to Start Prescriptions: amoxicillin-pot clavulanate [Augmentin] Tristin Joseph hydrocodone-acetaminophen Tristin Joseph Allergies Allergy/AdvReac Type Severity Reaction Status Date / Time No Known Allergies Allergy Verified 12/31/23 16:15 Discharge Plan Disposition Patient Disposition: Home, Self-Care Condition: Fair Follow up Plan Follow up with: Tristin Joseph MD [Staff Physician, General Surgery] - 07/15/25 Prescriptions/Medication Reconciliation: New hydrocodone-acetaminophen 5-325 mg tablet 1 tab PO Q6H PRN (Reason: post-op pain) Qty: 17 0RF amoxicillin-pot clavulanate [Augmentin] 500-125 mg tablet 1 tab PO TID Qty: 15 0RF Problem Reconciliation Problems Reviewed?: Yes Patient Discharge Instructions ACTIVITY: Ambulate as tolerated and No heavy lifting DIET: advance to your usual diet Additional Instructions: Remove dressings and shower after 48 hours Leave Steri-Strips intact Patient Instructions: DI for Appendicitis -- Adult, Stop Light Infection Print Language: [place]ian Providers Primary Care Provider: Idalia White Admit Provider: Librado Howard Attending Provider: Librado Howard
[2025-06-29 09:39] LABS: Microscopic, Urine URINE MICROSCOPIC (MICROSCOPIC)
[2025-06-29 09:59] LABS: Bilirubin,Urine Negative (Negative); Color,Urine YELLOW (Yellow); Glucose,Urine (UA) Negative (Negative); Ketones,Urine TRACE (Negative); Leukocyte Esterase,Urine Negative (Negative); PH,Urine 6.5 (5.0-8.5); Protein,Urine Negative (Negative); Specific Gravity, Urine 1.015 (1.005-1.030); Urobilinogen,Urine 0.2 EU/dl (0.2)
[2025-06-29 10:17] LABS: Hyaline Casts,Urine OCC #/lpf (0); WBC,Urine Occasional #/hpf (0-3)
[2025-06-29] MEDS: HYDROCODONE/APAP 5/325 MG TABLET 1 TAB PO (12:05)
--- NOTE | 2025-06-30 08:57 | EXP.ANES.II ---
[facility] Anesthesia Record Part II Anesthesia Record Part II Discharge Time: 09:15 Destination: Surgical Day Care (OP Surgery) PACU nurse assessment reviewed?: Yes Patient Condition:: Good Anesthesia Complications:: None Swallowing reflex intact?: Yes Airway Patency: Patent Cyanosis?: No Blood Pressure: 140/86 SaO2: 94 Respiratory Rate: 16 Pulse Rate: 89 Temperature: 98.9 F Mental Status: Alert & Oriented Pain level:: 0 Nausea and/or vomitting:: None Intake, IV Amount: 0 Hydration: Adequate
[2025-06-30 08:58] VITALS: BP 140/86; PULSE 89; RESP 16; TEMP 37.2; O2SAT 94
--- NOTE | 2025-07-01 10:50 | SW/DCPLANNER ---
Spoke with patient on the phone. Patient stated that he is doing good. Patient stated he is aware of his upcoming appointment. Patient stated that he was able to get his new medicine picked up from clinic pharmacy. Patient stated that he has no concerns or questions at this time. Cara Cruz
== END 2025-06-29 14:08 | disposition home or self-care (01) ==
LOC: ER 21:11 → 2ND 21:54
PROVIDERS: Physician Assistant; Surgery; Admitting Provider Student in an Organized Health Care Education/Training Program; Emergency Provider Student in an Organized Health Care Education/Training Program; PCP Nurse Practitioner Family; Visit Provider Student in an Organized Health Care Education/Training Program
PROC: 0DTJ4ZZ Resection of Appendix, Percutaneous Endoscopic Approach (ICD-10-PCS; CPT 44970; principal; 2025-06-29 07:30)
DX: K35.30 Acute appendicitis with localized peritonitis, without perforation or gangrene (principal); I10 Essential (primary) hypertension; G40.909 Epilepsy, unspecified, not intractable, without status epilepticus; Z87.891 Personal history of nicotine dependence; Z90.49 Acquired absence of other specified parts of digestive tract
CPT/HCPCS: 44970; 36415; 51702; 74177; 80053; 81001; 83605; 83690; 85025; 96361; 96365; 96367; 96375; 96376; 99284; G0378; J1100; J1836; J1885; J2003; J2250; J2270; J2405; J2543; J2704; J3010; J7120; Q9967